=== PATIENT | female | born 1940 | race Asian ===

== ENCOUNTER 2018-09-30 13:27 | Emergency (ER) | payer MEDICARE, OTHER ==
[2018-09-30] MEDS: ACETAMINOPHEN 325 MG TAB PO (14:47)
== END 2018-09-30 15:39 | disposition home or self-care (01) ==
LOC: FTE 13:27
DX: S29.002A Unspecified injury of muscle and tendon of back wall of thorax, initial encounter (principal); M80.88XA Other osteoporosis with current pathological fracture, vertebra(e), initial encounter for fracture; S60.222A Contusion of left hand, initial encounter; I10 Essential (primary) hypertension; V49.50XA Passenger injured in collision with unspecified motor vehicles in traffic accident, initial encounter; Z79.82 Long term (current) use of aspirin
CPT/HCPCS: 72072; 73130-LT; 99284